=== PATIENT | male | born 1960 | race Two or more races ===

== ENCOUNTER 2018-02-21 10:16 | Inpatient (IN) | payer OTHER ==
[2018-02-21 10:33] VITALS: BMI 36.1
--- NOTE | 2018-02-21 12:11 | HP ---
CIWA Score - CIWA Score Nausea/Vomitin Muscle Tremors: 3 Anxiety: 3 Agitation: 3 Paroxysmal Sweats: 1-Minimal Palms Moist Orientation: 0-Oriented Tacttile Disturbances: 2-Mild Itch/Numbness/Burn Auditory Disturbances: 2-Mild Harshness/Frighten Visual Disturbances: 0-None Headache: 2-Mild CIWA-Ar Total Score: 19 Admission ROS BHS - HPI Chief Complaint: i need help to stop drinking alcohol,cocaine and marijuana Allergies/Adverse Reactions: Allergies Allergy/AdvReac Type Severity Reaction Status Date / Time No Known Allergies Allergy Verified 02/21/18 10:42 History of Present Illness: this 57 years old male with alcohol,cocaine and marijuana dependence seeking detox,withdrawal symptom,last treatment [facility] 01/29 syncope on 02/16/18 hypertension,type 2 dm, sleep apnea for 8 years on cpap at home nightly bipolar disorder and depression longest period of sobriety 10 years Exam Limitations: No Limitations - Ebola screening Have you traveled outside of the country in the last 21 days: No (N) Have you had contact with anyone from an Ebola affected area: No Have you been sick,other than usual withdrawal symptoms: No Do you have a fever: No - Review of Systems Constitutional: Loss of Appetite, Malaise, Night Sweats, Changes in sleep, Weakness EENT: reports: Tearing, Nose Congestion Respiratory: reports: No Symptoms reported, Other (astma) Cardiac: reports: No Symptoms Reported GI: reports: Diarrhea, Nausea, Vomiting, Abdominal cramping : reports: No Symptoms Reported Musculoskeletal: reports: Back Pain, Muscle Pain Integumentary: reports: Dryness Neuro: reports: Tremors Endocrine: reports: No Symptoms Reported Hematology: reports: No Symptoms Reported Psychiatric: reports: No Sypmtoms Reported, Judgement Intact, Mood/Affect Appropiate, Orientated x3, Depressed (bipolar with depression) Patient History - Patient Medical History Hx Asthma: Yes (ON PUMP albuterol and advair) Hx Chronic Obstructive Pulmonary Disease (COPD): No Hx Cancer: No Hx Cardiac Disorders: No Hx Congestive Heart Failure: No Hx Hypertension: Yes (ON MEDICATIONS) Hx Hypercholesterolemia: No Hx Pacemaker: No HX Cerebrovascular Accident: No Hx Seizures: No Hx Dementia: No Hx Diabetes: Yes (ON METFORMIN) Hx Gastrointestinal Disorders: No Hx Liver Disease: No Hx Genitourinary Disorders: No Hx Sexually Transmitted Disorders: No Hx Renal Disease (ESRD): No Hx Thyroid Disease: No Hx Human Immunodeficiency Virus (HIV): No (last 2011 negative) Hx Hepatitis C: No Hx Depression: Yes Hx Suicide Attempt: Yes (O/D ON PAIN MEDICATION last 2015) Hx Bipolar Disorder: No Hx Schizophrenia: No Other Medical History: no sucidal,no homicidal - Patient Surgical History Past Surgical History: No Hx Neurologic Surgery: No Hx Cataract Extraction: No Hx Cardiac Surgery: No Hx Lung Surgery: No Hx Breast Surgery: No Hx Breast Biopsy: No Hx Abdominal Surgery: No Hx Appendectomy: No Hx Cholecystectomy: No Hx Genitourinary Surgery: No Hx Section: No Hx Orthopedic Surgery: No Anesthesia Reaction: No - PPD History Previous Implant?: Yes Documented Results: Negative w/o proof Implanted On [facility] Admission?: No PPD to be Administered?: Yes - Smoking Cessation Smoking history: Current every day smoker Have you smoked in the past 12 months: Yes Aproximately how many cigarettes per day: 6 Hx Chewing Tobacco Use: No Initiated information on smoking cessation: Yes 'Breaking Loose' booklet given: 02/21/18 - Substance & Tx. History Hx Alcohol Use: Yes Hx Substance Use: Yes Substance Use Type: Alcohol, Cocaine, Marijuana - Substances Abused Alcohol Route: Oral Frequency: Daily Amount used: 6-7 40 [employer] Age of first use: 11 Date of Last Use: 02/20/18 Crack Route: Smoking Frequency: Daily Amount used: $300-$400 DAILY Age of first use: 32 Date of Last Use: 02/20/18 Marijuana/Hashish Route: Smoking Frequency: Daily Amount used: $300 Age of first use: 14 Date of Last Use: 02/20/18 Family Disease History - Family Disease History Family Disease History: CA: Mother (right breast,), Other: Father (alcohol, ), Mother Admission Physical Exam S - Vital Signs Vital Signs: Vital Signs - 24 hr 02/21/18 10:28 Temperature 98.8 F Pulse Rate 78 Respiratory 18 Rate Blood Pressure 160/94 - Physical General Appearance: Yes: Moderate Distress, Tremorous, Irritable, Sweating, Anxious HEENTM: Yes: Normal ENT Inspection, MAULIK, Pharynx Normal Respiratory: Yes: Lungs Clear, Normal Breath Sounds, No Respiratory Distress Neck: Yes: Within Normal Limits Breast: Yes: Within Normal Limits Cardiology: Yes: Within Normal Limits, Regular Rhythm, Regular Rate, S1, S2 Abdominal: Yes: Within Normal Limits, Normal Bowel Sounds, Non Tender, Flat, Soft Genitourinary: Yes: Within Normal Limits Back: Yes: Within Normal Limits Musculoskeletal: Yes: Within Normal Limits, full range of Motion, Back pain, Muscle Pain Extremities: Yes: Tremors Neurological: Yes: 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 intact, Fully Oriented, Alert, Motor Strength 5/5 Integumentary: Yes: Dry Lymphatic: Yes: Within Normal Limits - Diagnostic (1) Alcohol dependence with uncomplicated withdrawal Current Visit: Yes Status: Acute (2) Cocaine dependence Current Visit: Yes Status: Acute (3) Cannabis dependence Current Visit: Yes Status: Acute (4) Essential hypertension Current Visit: Yes Status: Acute (5) Asthma Current Visit: Yes Status: Acute (6) Sleep apnea Current Visit: Yes Status: Acute (7) Nicotine dependence Current Visit: Yes Status: Acute (8) Bipolar disorder Current Visit: Yes Status: Acute Cleared for Admission [facility] - Detox or Rehab [facility] Level of Care: Medically Managed Detox Regimen/Protocol: Librium [facility] Breath Alcohol Content Breath Alcohol Content: 0 Urine Drug Screen - Results Drug Screen Negative: No Urine Drug Screen Results: THC-Marijuana, FRIDA-Cocaine, BZO-Benzodiazepines, TCA- Tricyclic Antidepress
[2018-02-21] MEDS ORDERED: P-EPHED 60MG/TRIPROLIDI 2.5MG TABLET PO PRN (12:28)
[2018-02-21] MEDS ORDERED: LOPERAMIDE HCL 2 MG CAPSULE PO PRN (12:28)
[2018-02-21] MEDS ORDERED: MENTHOL/PHENOL 1 EACH UD MM PRN (12:28)
[2018-02-21] MEDS ORDERED: chlordiazePOXIDE HCL 25 MG CAPSULE PO PRN (12:28)
[2018-02-21] MEDS ORDERED: IBUPROFEN 400 MG TABLET (FP) PO PRN (12:28)
[2018-02-21] MEDS ORDERED: chlordiazePOXIDE HCL 25 MG CAPSULE PO ONE (12:28)
[2018-02-21] MEDS ORDERED: ACETAMINOPHEN 325 MG TABLET (FP) PO PRN (12:28)
[2018-02-21] MEDS ORDERED: MAGNESIUM CITRATE 300 ML BOTTLE PO PRN (12:28)
[2018-02-21] MEDS ORDERED: MAG HYDROX/AL HYDROX/SIMETH 30 ML UNIT-DOSE CUP PO PRN (12:28)
[2018-02-21] MEDS ORDERED: guaiFENesin/D-METHORPHAN HB 10 ML UNIT-DOSE CUPS PO PRN (12:28)
[2018-02-21] MEDS ORDERED: hydrOXYzine PAMOATE 50 MG CAPSULE (FP) PO PRN (12:28)
[2018-02-21] MEDS ORDERED: MAGNESIUM HYDROX 2400MG/30ML ORAL SUSPENSION 30 ML CUP PO PRN (12:28)
[2018-02-21] MEDS: NICOTINE 21 MG/24 HOURS TOPICAL PATCH TD SCH (14:01)
[2018-02-21] MEDS: chlordiazePOXIDE HCL 25 MG CAPSULE PO SCH ×2 (17:10→22:18)
[2018-02-21] MEDS: metFORMIN HCL 500 MG TABLET (FP) PO SCH (17:11)
[2018-02-21] MEDS ORDERED: MELATONIN 5 MG TABLETS PO PRN (22:00)
[2018-02-21] MEDS: THIAMINE HCL 100 MG TABLET (FP) PO SCH (22:18)
[2018-02-22] MEDS: chlordiazePOXIDE HCL 25 MG CAPSULE PO SCH ×4 (05:17→22:07)
[2018-02-22] MEDS: metFORMIN HCL 500 MG TABLET (FP) PO SCH ×2 (07:17→17:49)
--- NOTE | 2018-02-22 08:52 | EKG ---
Test Reason : Blood Pressure : / mmHG Vent. Rate : 085 BPM Atrial Rate : 085 BPM P-R Int : 160 ms QRS Dur : 110 ms QT Int : 388 ms P-R-T Axes : 041 060 -27 degrees QTc Int : 461 ms SINUS RHYTHM WITH MARKED SINUS ARRHYTHMIA AND PREMATURE ATRIAL COMPLEXES T WAVE ABNORMALITY, CONSIDER INFERIOR ISCHEMIA PROLONGED QT ABNORMAL ECG WHEN COMPARED WITH ECG OF 21-FEB-2018 12:56, NO SIGNIFICANT CHANGE S SEEN Confirmed by UYEN CORTEZ MD ([id number]) on 02/22/2018 8:52:33 AM Referred By: Confirmed By:UYEN CORTEZ MD
--- NOTE | 2018-02-22 09:00 | EKG ---
Test Reason : Blood Pressure : / mmHG Vent. Rate : 095 BPM Atrial Rate : 095 BPM P-R Int : 170 ms QRS Dur : 110 ms QT Int : 364 ms P-R-T Axes : 049 063 -40 degrees QTc Int : 457 ms SINUS RHYTHM WITH PREMATURE ATRIAL COMPLEXES T WAVE ABNORMALITY, CONSIDER INFERIOR ISCHEMIA ABNORMAL ECG NO PREVIOUS ECGS AVAILABLE Confirmed by UYEN CORTEZ MD ([id number]) on 02/22/2018 8:59:38 AM Referred By: Confirmed By:UYEN CORTEZ MD
[2018-02-22] MEDS: amLODIPine BESYLATE 10 MG TABLET (FP) PO SCH (10:17)
[2018-02-22] MEDS: HYDROCHLOROTHIAZIDE 25 MG TABLET (FP) PO SCH (10:17)
[2018-02-22] MEDS: ASPIRIN COATED 81 MG TABLET.EC PO SCH (10:17)
[2018-02-22] MEDS: PRENATAL VITAMINS W/ FOLIC ACID TABLET (FP) PO SCH (10:17)
[2018-02-22] MEDS: NICOTINE 21 MG/24 HOURS TOPICAL PATCH TD SCH (10:19)
[2018-02-22] MEDS: GLIMEPIRIDE 4 MG TABLET (FP) PO SCH (11:00)
[2018-02-22 11:18] LABS: HEMATOCRIT 40.9 % (35.4-49); HEMOGLOBIN 13.6 GM/dL (11.7-16.9); MCH 30.4 pg (25.7-33.7); MCHC 33.3 g/dl (32.0-35.9); MEAN CELL VOLUME 91.1 fl (80-96); MEAN PLT VOLUME 7.2 fl (7.5-11.1); PLATELET COUNT 247 K/MM3 (134-434); RBC 4.49 M/mm3 (4.00-5.60); RDW 13.2 % (11.9-15.9)
[2018-02-22 11:37] LABS: ALBUMIN 3.2 g/dl (3.4-5.0); ANION GAP 8 (8-16); BILIRUBIN,TOTAL 0.3 mg/dL (0.2-1.0); BLOOD UREA NITROGEN 9 mg/dL (7-18); CALCIUM 8.5 mg/dL (8.5-10.1); CHLORIDE 107 mmol/L (98-107); CO2 27 mmol/L (21-32); CREATININE 0.9 mg/dL (0.7-1.3); GLUCOSE,RANDOM 210 mg/dL (74-106); POTASSIUM 3.7 mmol/L (3.5-5.1); SGOT/AST 21 U/L (15-37); SGPT/ALT 43 U/L (12-78); SODIUM 142 mmol/L (136-145); TOT PROT 6.6 g/dl (6.4-8.2)
--- NOTE | 2018-02-22 11:37 | PN ---
S CIWA - CIWA Score Nausea/Vomitin-No Nausea/No Vomiting Muscle Tremors: 4-Moderate,w/Arms Extend Anxiety: 4-Mod. Anxious/Guarded Agitation: 4-Moderately Restless Paroxysmal Sweats: 1-Minimal Palms Moist Orientation: 0-Oriented Tacttile Disturbances: 0-None Auditory Disturbances: 0-None Visual Disturbances: 0-None Headache: 0-None Present CIWA-Ar Total Score: 13 BHS Progress Note (SOAP) Subjective: ANXIETY,SWEATS,TREMORS,FATIGUE. Objective: 02/22/18 11:36 Vital Signs 02/22/18 02/22/18 02/22/18 06:21 06:30 09:12 Temperature 97.2 F L 96.7 F L Pulse Rate 76 48 L Respiratory 18 18 18 Rate Blood Pressure 114/80 136/91 Laboratory Tests 02/21/18 02/21/18 02/22/18 11:29 16:12 05:16 WBC RBC Hgb Hct MCV MCH MCHC RDW Plt Count MPV POC Glucometer 177 293 247 02/22/18 07:00 WBC 7.0 RBC 4.49 Hgb 13.6 Hct 40.9 MCV 91.1 MCH 30.4 MCHC 33.3 RDW 13.2 Plt Count 247 MPV 7.2 L POC Glucometer OTHER LABS PENDING Assessment: 02/22/18 11:37 WITHDRAWAL SX Plan: CONTINUE DETOX
[2018-02-22 11:38] LABS: ALK PHOS 94 U/L (45-117)
--- NOTE | 2018-02-22 12:22 | CONSULT ---
[facility] Psychiatric Consult - Data Date of interview: 02/22/18 Admission source: [facility] Identifying data: First admission to [facility] for this 57 y/o AA male seeking detox treatment on for alcohol,cannabis and cocaine (crack) dependence.Patient is single,without children,homeless,unemployed and supported on SSI benefits. Substance Abuse History: Confirmed by the patient.Smoking history: Current every day smoker. Have you smoked in the past 12 months: Yes. Aproximately how many cigarettes per day: 6. Hx Chewing Tobacco Use: No. Initiated information on smoking cessation: Yes. 'Breaking Loose' booklet given: . - Substance & Tx. History. Hx Alcohol Use: Yes. Hx Substance Use: Yes. Substance Use Type: Alcohol, Cocaine, Marijuana. - Substances Abused. Alcohol. Route: Oral. Frequency: Daily. Amount used: 6-7 40 [employer]. Age of first use: 11. Date of Last Use: 02/20/18. Crack. Route: Smoking. Frequency: Daily. Amount used: $300-$400 DAILY. Age of first use: 32. Date of Last Use: 02/20/18. Marijuana/Hashish. Route: Smoking. Frequency: Daily. Amount used: $300. Age of first use: 14. Date of Last Use: 02/20/18 Medical History: Significant for sleep apnea (CPAP),diabetes mellitus,bronchial asthma and chronic lumbar pain. Psychiatric History: Patient admits to a prior history of psychiatric hospitalizations.Known to [facility].Diagnosed with MDD and Bipolar Disorder as per self-report.Patient indicates that he " used to " be on clozapine and zolpidem.Not taken " for a while." Mr Castaneda states that he does not have a psychiatric OPD care provider at this time.He endorses a history of one suicide attempt, in 2016, via overdose with medications. Physical/Sexual Abuse/Trauma History: Patient denies. Additional Comment: Urine Drug Screen Results: THC-Marijuana, FRIDA-Cocaine, BZO- Benzodiazepines, TCA-Tricyclic Antidepressant.Noted. Mental Status Exam - Mental Status Exam Alert and Oriented to: Time, Place, Person Cognitive Function: Good Patient Appearance: Well Groomed (short stature,obese) Mood: Nervous, Anxious Affect: Mood Congruent Patient Behavior: Fatigued, Appropriate, Cooperative Speech Pattern: Clear, Appropriate Voice Loudness: Normal Thought Process: Intact, Goal Oriented Thought Disorder: Not Present Hallucinations: Denies Suicidal Ideation: Denies Homicidal Ideation: Denies Insight/Judgement: Fair Sleep: Poorly, Difficulty falling asleep Appetite: Good Muscle strength/Tone: Normal Gait/Station: Normal Psychiatric Findings - Problem List ([place] 1, 2,3) (1) Alcohol dependence with uncomplicated withdrawal Current Visit: Yes Status: Acute (2) Cannabis dependence Current Visit: Yes Status: Acute (3) Cocaine dependence Current Visit: Yes Status: Acute Qualifiers: Substance use status: uncomplicated Qualified Code(s): F14.20 - Cocaine dependence, uncomplicated (4) Nicotine dependence Current Visit: Yes Status: Acute Qualifiers: Nicotine product type: cigarettes Substance use status: in withdrawal Qualified Code(s): F17.213 - Nicotine dependence, cigarettes, with withdrawal (5) Bipolar disorder Current Visit: Yes Status: Chronic Comment: As per self-report. (6) Substance induced mood disorder Current Visit: Yes Status: Suspected (7) Insomnia Current Visit: Yes Status: Acute Qualifiers: Insomnia type: unspecified Qualified Code(s): G47.00 - Insomnia, unspecified - Initial Treatment Plan Initial Treatment Plan: Psychoeducation.Sleep hygiene.Detoxification in progress.Clozaril is not re-started (extended period of non-adherence).Insomnia is addressed with melatonin 5 mg po hs.Patient is made aware.Side effects/ benefits discussed.Mr Castaneda agrees with this careplan.Observation.[facility] is contacted at [phone] (with patient's verbal authorization ) : last refills were issued in August 2015 for depakote,risperidone and citalopram.Medication reconciliation sheet : no evidence of zolpidem or clozapine.
[2018-02-22 12:34] LABS: SICKLE CELL SCREEN NEGATIVE (NEGATIVE)
[2018-02-22] MEDS: THIAMINE HCL 100 MG TABLET (FP) PO SCH (22:07)
[2018-02-23] MEDS: chlordiazePOXIDE HCL 25 MG CAPSULE PO SCH ×2 (05:49→10:09)
[2018-02-23] MEDS: metFORMIN HCL 500 MG TABLET (FP) PO SCH ×2 (06:21→17:30)
[2018-02-23] MEDS: GLIMEPIRIDE 4 MG TABLET (FP) PO SCH (06:21)
[2018-02-23] MEDS: NICOTINE 21 MG/24 HOURS TOPICAL PATCH TD SCH (10:08)
[2018-02-23] MEDS: amLODIPine BESYLATE 10 MG TABLET (FP) PO SCH (10:08)
[2018-02-23] MEDS: PRENATAL VITAMINS W/ FOLIC ACID TABLET (FP) PO SCH (10:08)
[2018-02-23] MEDS: HYDROCHLOROTHIAZIDE 25 MG TABLET (FP) PO SCH (10:08)
[2018-02-23] MEDS: ASPIRIN COATED 81 MG TABLET.EC PO SCH (10:08)
[2018-02-23] MEDS: NICOTINE POLACRILEX 2 MG GUM BC PRN (10:08)
--- NOTE | 2018-02-23 11:31 | PN ---
[facility] CIWA - CIWA Score Nausea/Vomitin-No Nausea/No Vomiting Muscle Tremors: 4-Moderate,w/Arms Extend Anxiety: 4-Mod. Anxious/Guarded Agitation: 4-Moderately Restless Paroxysmal Sweats: 1-Minimal Palms Moist Orientation: 0-Oriented Tacttile Disturbances: 0-None Auditory Disturbances: 0-None Visual Disturbances: 0-None Headache: 0-None Present CIWA-Ar Total Score: 13 S Progress Note (SOAP) Subjective: C/O TREMORS, ANXIETY, SWEATS. ALERT O X 3. PT USES C-PAP MACHINE WHEN SLEEPING- SELF CARE. Objective: 02/23/18 11:31 Vital Signs 02/23/18 02/23/18 06:16 09:16 Temperature 97.5 F L 97.1 F L Pulse Rate 73 60 Respiratory 20 18 Rate Blood Pressure 132/87 132/75 Laboratory Tests 02/21/18 02/21/18 02/22/18 11:29 16:12 05:16 WBC RBC Hgb Hct MCV MCH MCHC RDW Plt Count MPV Sickle Cell Screen Sodium Potassium Chloride Carbon Dioxide Anion Gap BUN Creatinine Creat Clearance w eGFR POC Glucometer 177 293 247 Random Glucose Calcium Total Bilirubin AST ALT Alkaline Phosphatase Total Protein Albumin RPR Titer HIV 1&2 Antibody Screen HIV P24 Antigen 02/22/18 02/22/18 02/22/18 07:00 07:00 07:00 WBC 7.0 RBC 4.49 Hgb 13.6 Hct 40.9 MCV 91.1 MCH 30.4 MCHC 33.3 RDW 13.2 Plt Count 247 MPV 7.2 L Sickle Cell Screen Negative Sodium 142 Potassium 3.7 Chloride 107 Carbon Dioxide 27 Anion Gap 8 BUN 9 Creatinine 0.9 Creat Clearance w eGFR > 60 POC Glucometer Random Glucose 210 H Calcium 8.5 Total Bilirubin 0.3 AST 21 ALT 43 Alkaline Phosphatase 94 Total Protein 6.6 Albumin 3.2 L RPR Titer HIV 1&2 Antibody Screen Negative HIV P24 Antigen Negative 02/22/18 02/22/18 02/23/18 07:00 16:21 05:48 WBC RBC Hgb Hct MCV MCH MCHC RDW Plt Count MPV Sickle Cell Screen Sodium Potassium Chloride Carbon Dioxide Anion Gap BUN Creatinine Creat Clearance w eGFR POC Glucometer 224 267 Random Glucose Calcium Total Bilirubin AST ALT Alkaline Phosphatase Total Protein Albumin RPR Titer Nonreactive HIV 1&2 Antibody Screen HIV P24 Antigen Assessment: 02/23/18 11:31 WITHDRAWAL SX Plan: CONTINUE DETOX
[2018-02-23] MEDS: chlordiazePOXIDE 5 MG CAPSULE PO SCH ×2 (17:30→22:05)
--- NOTE | 2018-02-23 17:52 | PN ---
[facility] Progress Note Note: Psychiatry Attending's note : Approached by patient earlier during daytime. Complaint offered : insomnia not responding to melatonin. Mr Castaneda insists on receiving ambien at bedtime. Patient is a known case of obstructive sleep apnea (on CPAP). Ambien represents a significant risk for respiratory depression. Will avoid this medication.Switch to benadryl 50 mg po hs prn. Discussed with patient.Mr Castaneda is agreeable with this careplan. Will follow.
[2018-02-23] MEDS ORDERED: diphenhydrAMINE HCL 50 MG CAPSULE PO PRN (22:00)
[2018-02-23] MEDS ORDERED: ZOLPIDEM TARTRATE 5 MG TABLET PO PRN (22:00)
[2018-02-23] MEDS ORDERED: hydrOXYzine PAMOATE 50 MG CAPSULE (FP) PO PRN (22:00)
[2018-02-23] MEDS: THIAMINE HCL 100 MG TABLET (FP) PO SCH (22:05)
[2018-02-24] MEDS: chlordiazePOXIDE 5 MG CAPSULE PO SCH (05:53)
[2018-02-24] MEDS: GLIMEPIRIDE 4 MG TABLET (FP) PO SCH (06:09)
[2018-02-24] MEDS: metFORMIN HCL 500 MG TABLET (FP) PO SCH (06:09)
[2018-02-24 09:26] VITALS: BP 130/82; PULSE 71; TEMP 97
[2018-02-24 09:58] LABS: URINE APPEARANCE CLEAR; URINE BILIRUBIN NEGATIVE (<2.0 mg/dL); URINE COLOR YELLOW; URINE GLUCOSE (UA) 3+ (NEGATIVE); URINE KETONE NEGATIVE (NEGATIVE); URINE LEUK ESTERASE NEGATIVE (NEGATIVE); URINE NITRITE NEGATIVE (NEGATIVE); URINE PROTEIN NEGATIVE (NEGATIVE); URINE UROBILINOGEN 4.0 E.U/dl mg/dL (0.2-1.0)
[2018-02-24 10:34] LABS: EPI CELLS RARE /HPF (FEW)
[2018-02-24] MEDS: ASPIRIN COATED 81 MG TABLET.EC PO SCH (10:34)
[2018-02-24] MEDS: HYDROCHLOROTHIAZIDE 25 MG TABLET (FP) PO SCH (10:34)
[2018-02-24] MEDS: amLODIPine BESYLATE 10 MG TABLET (FP) PO SCH (10:34)
[2018-02-24] MEDS: PRENATAL VITAMINS W/ FOLIC ACID TABLET (FP) PO SCH (10:35)
[2018-02-24] MEDS: NICOTINE 21 MG/24 HOURS TOPICAL PATCH TD SCH (10:35)
[2018-02-24] MEDS: NICOTINE POLACRILEX 2 MG GUM BC PRN (10:36)
[2018-02-24] MEDS ORDERED: chlordiazePOXIDE HCL 10 MG CAPSULE PO SCH ×2 (11:00→17:00)
--- NOTE | 2018-02-24 13:15 | PN ---
[facility] Progress Note (SOAP) Subjective: DETOX COMPLETED. ALERT O X 3. NAD. PT EAGER TO GO INTO REHAB TODAY. [facility] [address] [place] [address] REHAB TODAY. Objective: 02/24/18 13:13 Vital Signs 02/24/18 02/24/18 06:42 09:25 Temperature 97.6 F 97.0 F L Pulse Rate 74 71 Respiratory 20 18 Rate Blood Pressure 115/75 130/82 Laboratory Tests 02/21/18 02/21/18 02/22/18 11:29 16:12 05:16 WBC RBC Hgb Hct MCV MCH MCHC RDW Plt Count MPV Sickle Cell Screen Sodium Potassium Chloride Carbon Dioxide Anion Gap BUN Creatinine Creat Clearance w eGFR POC Glucometer 177 293 247 Random Glucose Calcium Total Bilirubin AST ALT Alkaline Phosphatase Total Protein Albumin Urine Color Urine Appearance Urine pH Ur Specific [place] Urine Protein Urine Glucose (UA) Urine Ketones Urine Blood Urine Nitrite Urine Bilirubin Urine Urobilinogen Ur Leukocyte Esterase Urine WBC (Auto) Urine RBC (Auto) Ur Epithelial Cells RPR Titer HIV 1&2 Antibody Screen HIV P24 Antigen 02/22/18 02/22/18 02/22/18 07:00 07:00 07:00 WBC 7.0 RBC 4.49 Hgb 13.6 Hct 40.9 MCV 91.1 MCH 30.4 MCHC 33.3 RDW 13.2 Plt Count 247 MPV 7.2 L Sickle Cell Screen Negative Sodium 142 Potassium 3.7 Chloride 107 Carbon Dioxide 27 Anion Gap 8 BUN 9 Creatinine 0.9 Creat Clearance w eGFR > 60 POC Glucometer Random Glucose 210 H Calcium 8.5 Total Bilirubin 0.3 AST 21 ALT 43 Alkaline Phosphatase 94 Total Protein 6.6 Albumin 3.2 L Urine Color Urine Appearance Urine pH Ur Specific [place] Urine Protein Urine Glucose (UA) Urine Ketones Urine Blood Urine Nitrite Urine Bilirubin Urine Urobilinogen Ur Leukocyte Esterase Urine WBC (Auto) Urine RBC (Auto) Ur Epithelial Cells RPR Titer HIV 1&2 Antibody Screen Negative HIV P24 Antigen Negative 02/22/18 02/22/18 02/23/18 07:00 16:21 05:48 WBC RBC Hgb Hct MCV MCH MCHC RDW Plt Count MPV Sickle Cell Screen Sodium Potassium Chloride Carbon Dioxide Anion Gap BUN Creatinine Creat Clearance w eGFR POC Glucometer 224 267 Random Glucose Calcium Total Bilirubin AST ALT Alkaline Phosphatase Total Protein Albumin Urine Color Urine Appearance Urine pH Ur Specific [place] Urine Protein Urine Glucose (UA) Urine Ketones Urine Blood Urine Nitrite Urine Bilirubin Urine Urobilinogen Ur Leukocyte Esterase Urine WBC (Auto) Urine RBC (Auto) Ur Epithelial Cells RPR Titer Nonreactive HIV 1&2 Antibody Screen HIV P24 Antigen 02/24/18 02/24/18 05:56 06:40 WBC RBC Hgb Hct MCV MCH MCHC RDW Plt Count MPV Sickle Cell Screen Sodium Potassium Chloride Carbon Dioxide Anion Gap BUN Creatinine Creat Clearance w eGFR POC Glucometer 261 Random Glucose Calcium Total Bilirubin AST ALT Alkaline Phosphatase Total Protein Albumin Urine Color Yellow Urine Appearance Clear Urine pH 6.0 Ur Specific [place] 1.028 Urine Protein Negative Urine Glucose (UA) 3+ H Urine Ketones Negative Urine Blood 3+ H Urine Nitrite Negative Urine Bilirubin Negative Urine Urobilinogen 4.0 e.u/dl Ur Leukocyte Esterase Negative Urine WBC (Auto) 8 Urine RBC (Auto) 307 Ur Epithelial Cells Rare RPR Titer HIV 1&2 Antibody Screen HIV P24 Antigen Assessment: 02/24/18 13:14 MEDICALLY STABLE Plan: D/C PT TODAY TO REHAB REPEAT UA;UC IN REHAB.
--- NOTE | 2018-02-24 13:18 | DS ---
[facility] Detox Discharge Summary Admission Date: 02/21/18 Discharge Date: 02/24/18 - History Present History: Alcohol Dependence, Cannabis Dependence, Cocaine Dependence Additional Comments: DETOX COMPLETED. ALERT O X 3. NAD. Pertinent Past History: PLEASE SEE DX BELOW - Physical Exam Results Vital Signs: Vital Signs Temperature 97.0 F L 02/24/18 09:25 Pulse Rate 71 02/24/18 09:25 Respiratory Rate 18 02/24/18 09:25 Blood Pressure 130/82 02/24/18 09:25 O2 Sat by Pulse Oximetry (%) Pertinent Admission Physical Exam Findings: WITHDRAWAL SX Laboratory Tests 02/21/18 02/21/18 02/22/18 11:29 16:12 05:16 WBC RBC Hgb Hct MCV MCH MCHC RDW Plt Count MPV Sickle Cell Screen Sodium Potassium Chloride Carbon Dioxide Anion Gap BUN Creatinine Creat Clearance w eGFR POC Glucometer 177 293 247 Random Glucose Calcium Total Bilirubin AST ALT Alkaline Phosphatase Total Protein Albumin Urine Color Urine Appearance Urine pH Ur Specific [place] Urine Protein Urine Glucose (UA) Urine Ketones Urine Blood Urine Nitrite Urine Bilirubin Urine Urobilinogen Ur Leukocyte Esterase Urine WBC (Auto) Urine RBC (Auto) Ur Epithelial Cells RPR Titer HIV 1&2 Antibody Screen HIV P24 Antigen 02/22/18 02/22/18 02/22/18 07:00 07:00 07:00 WBC 7.0 RBC 4.49 Hgb 13.6 Hct 40.9 MCV 91.1 MCH 30.4 MCHC 33.3 RDW 13.2 Plt Count 247 MPV 7.2 L Sickle Cell Screen Negative Sodium 142 Potassium 3.7 Chloride 107 Carbon Dioxide 27 Anion Gap 8 BUN 9 Creatinine 0.9 Creat Clearance w eGFR > 60 POC Glucometer Random Glucose 210 H Calcium 8.5 Total Bilirubin 0.3 AST 21 ALT 43 Alkaline Phosphatase 94 Total Protein 6.6 Albumin 3.2 L Urine Color Urine Appearance Urine pH Ur Specific [place] Urine Protein Urine Glucose (UA) Urine Ketones Urine Blood Urine Nitrite Urine Bilirubin Urine Urobilinogen Ur Leukocyte Esterase Urine WBC (Auto) Urine RBC (Auto) Ur Epithelial Cells RPR Titer HIV 1&2 Antibody Screen Negative HIV P24 Antigen Negative 02/22/18 02/22/18 02/23/18 07:00 16:21 05:48 WBC RBC Hgb Hct MCV MCH MCHC RDW Plt Count MPV Sickle Cell Screen Sodium Potassium Chloride Carbon Dioxide Anion Gap BUN Creatinine Creat Clearance w eGFR POC Glucometer 224 267 Random Glucose Calcium Total Bilirubin AST ALT Alkaline Phosphatase Total Protein Albumin Urine Color Urine Appearance Urine pH Ur Specific [place] Urine Protein Urine Glucose (UA) Urine Ketones Urine Blood Urine Nitrite Urine Bilirubin Urine Urobilinogen Ur Leukocyte Esterase Urine WBC (Auto) Urine RBC (Auto) Ur Epithelial Cells RPR Titer Nonreactive HIV 1&2 Antibody Screen HIV P24 Antigen 02/24/18 02/24/18 05:56 06:40 WBC RBC Hgb Hct MCV MCH MCHC RDW Plt Count MPV Sickle Cell Screen Sodium Potassium Chloride Carbon Dioxide Anion Gap BUN Creatinine Creat Clearance w eGFR POC Glucometer 261 Random Glucose Calcium Total Bilirubin AST ALT Alkaline Phosphatase Total Protein Albumin Urine Color Yellow Urine Appearance Clear Urine pH 6.0 Ur Specific [place] 1.028 Urine Protein Negative Urine Glucose (UA) 3+ H Urine Ketones Negative Urine Blood 3+ H Urine Nitrite Negative Urine Bilirubin Negative Urine Urobilinogen 4.0 e.u/dl Ur Leukocyte Esterase Negative Urine WBC (Auto) 8 Urine RBC (Auto) 307 Ur Epithelial Cells Rare RPR Titer HIV 1&2 Antibody Screen HIV P24 Antigen TO REPEAT UA;UC WHILE IN REHAB. - Treatment Hospital Course: Detox Protocol Followed, Detoxed Safely, Responded well, Discharged Condition Good, Rehab Referral Accepted Patient has Accepted a Rehab Referral to: [facility] [address] [place] [address] - Medication Discharge Medications: Ambulatory Orders Advair 250-50 Diskus 02/21/18 Albuterol Sulfate [Proair Hfa] 8.5 gm IH Q6H PRN 02/21/18 Amitriptyline HCl 25 mg PO HS 02/21/18 Amlodipine Besylate 10 mg PO DAILY 02/21/18 Aspirin [Aspirin EC] 81 mg PO DAILY 02/21/18 Gabapentin 600 mg PO TID 02/21/18 Glimepiride 4 mg PO DAILY 02/21/18 Hydrochlorothiazide 25 mg PO DAILY 02/21/18 Ibuprofen 800 mg PO TID 02/21/18 Lamotrigine [Lamictal -] 25 mg PO BID 02/21/18 Metformin HCl [Glucophage] 1,000 mg PO BID 02/21/18 Tizanidine HCl 4 mg PO TID 02/21/18 - Diagnosis (1) Alcohol dependence with uncomplicated withdrawal Current Visit: Yes Status: Acute (2) Asthma Current Visit: Yes Status: Chronic Qualifiers: Asthma severity: mild Asthma persistence: unspecified Asthma complication type: uncomplicated Qualified Code(s): J45.909 - Unspecified asthma, uncomplicated (3) Cocaine dependence Current Visit: Yes Status: Acute Qualifiers: Substance use status: uncomplicated Qualified Code(s): F14.20 - Cocaine dependence, uncomplicated (4) Essential hypertension Current Visit: Yes Status: Acute (5) Nicotine dependence Current Visit: Yes Status: Acute Qualifiers: Nicotine product type: cigarettes Substance use status: in withdrawal Qualified Code(s): F17.213 - Nicotine dependence, cigarettes, with withdrawal (6) Sleep apnea Current Visit: Yes Status: Chronic Qualifiers: Sleep apnea type: unspecified type Qualified Code(s): G47.30 - Sleep apnea , unspecified (7) Cannabis dependence Current Visit: Yes Status: Acute - AMA Did Patient Leave Against Medical Advice: No
--- NOTE | 2018-02-27 17:49 | EKG ---
Test Reason : Blood Pressure : / mmHG Vent. Rate : 080 BPM Atrial Rate : 080 BPM P-R Int : 160 ms QRS Dur : 096 ms QT Int : 360 ms P-R-T Axes : 024 065 001 degrees QTc Int : 415 ms SINUS RHYTHM WITH PREMATURE ATRIAL COMPLEXES NONSPECIFIC T WAVE ABNORMALITY ABNORMAL ECG WHEN COMPARED WITH ECG OF 21-FEB-2018 12:56, PREMATURE ATRIAL COMPLEXES ARE NOW PRESENT Confirmed by MELISSA TYLER, RADHA ([id number]) on 02/27/2018 5:49:23 PM Referred By: Confirmed By:RADHA TORRES MD
== END 2018-02-24 14:45 | disposition other institution (70) | DRG 774 ==
LOC: YASAS 10:16 → EDBD 10:16 → Y3N 12:47
PROVIDERS: ADMIT Surgery; ATTEND Surgery
PROC: HZ2ZZZZ Detoxification Services for Substance Abuse Treatment (ICD-10-PCS; principal; 2018-02-21)
DX: F10.230 Alcohol dependence with withdrawal, uncomplicated (principal); F14.20 Cocaine dependence, uncomplicated; F12.20 Cannabis dependence, uncomplicated; F17.213 Nicotine dependence, cigarettes, with withdrawal; F19.24 Other psychoactive substance dependence with psychoactive substance-induced mood disorder; F31.9 Bipolar disorder, unspecified; I10 Essential (primary) hypertension; E11.9 Type 2 diabetes mellitus without complications; J45.909 Unspecified asthma, uncomplicated; G47.00 Insomnia, unspecified; G47.33 Obstructive sleep apnea (adult) (pediatric); Z99.89 Dependence on other enabling machines and devices; Z79.84 Long term (current) use of oral hypoglycemic drugs; Z91.5 Personal history of self-harm
CPT/HCPCS: 36415; 80053; 81003; 81015; 82962; 85027; 85660; 86593; 87389; 93005; 93010

== ENCOUNTER 2018-03-02 13:48 | Emergency (ER) | payer OTHER ==
[2018-03-02 13:55] VITALS: BP 105/56; PULSE 88; TEMP 98.9; BMI 36.8
[2018-03-02] MEDS ORDERED: FAMOTIDINE 20 MG/50 ML IVPB 20 MG/50 ML MG IVPB ONE ×2 (14:28→14:49)
[2018-03-02] MEDS ORDERED: MAG HYDROX/AL HYDROX/SIMETH 30 ML UNIT-DOSE CUP PO ONE (14:28)
[2018-03-02] MEDS ORDERED: SODIUM CHLORIDE 0.9% 500 ML INFUS.BAG IV ONE (14:30)
[2018-03-02] MEDS ORDERED: MAG HYDROX/AL HYDROX/SIMETH 30 ML UNIT-DOSE CUP ONE (14:32)
--- NOTE | 2018-03-02 14:39 | PDOC ---
History of Present Illness - General Chief Complaint: Nausea/Vomiting Stated Complaint: ABD PAIN Time Seen by Provider: 03/02/18 14:02 History Source: Patient Exam Limitations: No Limitations - History of Present Illness Initial Comments: This is a 57 YOM with h/o crack cocain use, marijuana use, EtOH use, asthma, bipolar disorder, DAVID, and HTN who p/w 4-5 days of brown watery diarrhea, abdominal discomfort, nausea, NBNB vomiting x2 yesterday, and gurgling/burning sensation in his throat with strange taste. He has had similar symptoms before when he was diagnosed with food poisoning (resolved spontaneously). The patient denies any fever, chills, constipation, black/bloody stool, white stool, sharp abdominal or back pain, chest pain, SOB, numbness, tingling, fatigue/ generalized weakness, rash, loss of consciousness, or other symptoms. He has been trying anti-diarrheals like Immodium without relief of his symptoms. He denies ever having problems with acid reflux. Past History - Past Medical History Allergies/Adverse Reactions: Allergies Allergy/AdvReac Type Severity Reaction Status Date / Time trazodone AdvReac Intermediate Priapism Verified 03/02/18 13:53 Home Medications: Ambulatory Orders Albuterol Sulfate [Proair Hfa] 8.5 gm IH Q6H PRN 02/21/18 Amitriptyline HCl 25 mg PO HS 02/21/18 Amlodipine Besylate 10 mg PO DAILY 02/21/18 Aspirin [Aspirin EC] 81 mg PO DAILY 02/21/18 Gabapentin 600 mg PO TID 02/21/18 Glimepiride 4 mg PO DAILY 02/21/18 Hydrochlorothiazide 25 mg PO DAILY 02/21/18 Ibuprofen 800 mg PO TID 02/21/18 Lamotrigine [Lamictal -] 25 mg PO BID 02/21/18 Metformin HCl [Glucophage] 1,000 mg PO BID 02/21/18 Tizanidine HCl 4 mg PO TID 02/21/18 Asthma: Yes Cancer: No Cardiac Disorders: No CVA: No COPD: No CHF: No Dementia: No Diabetes: Yes GI Disorders: No Disorders: No HTN: Yes Hypercholesterolemia: No Kidney Stones: No Liver Disease: No Seizures: No Thyroid Disease: No - Surgical History Abdominal Surgery: No Appendectomy: No Cardiac Surgery: No Cholecystectomy: No Lung Surgery: No Neurologic Surgery: No Orthopedic Surgery: No - Reproductive History Testicular Surgery: No - Suicide/Smoking/Psychosocial Hx Smoking History: Current every day smoker Have you smoked in the past 12 months: Yes Number of Cigarettes Smoked Daily: 7 Information on smoking cessation initiated: No 'Breaking Loose' booklet given: 02/21/18 Hx Alcohol Use: Yes Drug/Substance Use Hx: Yes (marajuana, crack/cocaine) Substance Use Type: Alcohol, Cocaine, Marijuana Hx Substance Use Treatment: Yes (completed [employer] [facility] 12 yo,longest abstinence 9 years ) Abd/GI Specific PMHX - Complaint Specific PMHX Hepatitis: No Pancreatitis: No Review of Systems - Review of Systems Constitutional: No: Chills, Fever, Unexplained wgt Loss HEENTM: No: Nose Congestion, Throat Pain Respiratory: No: Cough, Shortness of Breath Cardiac (ROS): No: Chest Pain, Palpitations ABD/GI: Yes: Diarrhea, Nausea, Vomiting, Other (abdominal discomfort). No: Constipated : No: Burning, Dysuria Musculoskeletal: No: Back Pain, Neck Pain Integumentary: No: Bruising, Rash Neurological: No: Headache, Numbness, Tingling, Weakness, Dizziness Endocrine: No: Unexplained Weight Gain, Unexplained Weight Loss *Physical Exam - Vital Signs Last Vital Signs Temp Pulse Resp BP Pulse Ox 98.9 F 88 18 105/56 96 03/02/18 13:53 03/02/18 13:53 03/02/18 13:53 03/02/18 13:53 03/02/18 13:53 - Physical Exam General Appearance: Yes: Nourished, Appropriately Dressed, Other (nontoxic and well appearing, awake, alert, conversive, frustrated, answering questions appropriately, sitting in wheelchair in no distress). No: Apparent Distress HEENT: positive: EOMI, MAULIK, Normal Voice, Hearing Grossly Normal, Other ( mucous membranes are not moist). negative: Scleral Icterus (R), Scleral Icterus (L), Nasal Congestion Neck: positive: Trachea midline, Supple. negative: Tender, Rigid Respiratory/Chest: positive: Lungs Clear, Normal Breath Sounds. negative: Respiratory Distress, Crackles, Rhonchi, Stridor, Wheezing Cardiovascular: positive: Regular Rhythm, Regular Rate, S1, S2. negative: Edema , JVD, Murmur Gastrointestinal/Abdominal: positive: Normal Bowel Sounds, Tender (minimal epigastric), Flat, Soft. negative: Organomegaly, Pulsatile Mass, Guarding Musculoskeletal: positive: Normal Inspection. negative: Decreased Range of Motion, Vertebral Tenderness Extremity: positive: Normal Capillary Refill, Normal Inspection, Normal Range of Motion. negative: Tender, Cyanosis Integumentary: positive: Normal Color, Dry, Warm. 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 Initial Vital Signs Temp Pulse Resp BP Pulse Ox 98.9 F 88 18 105/56 96 03/02/18 13:53 03/02/18 13:53 03/02/18 13:53 03/02/18 13:53 03/02/18 13:53 Exam: minimal epigastric ttp, otherwise normal exam, normal heart/lung exam DDX IBNLT: GERD, gastritis, PUD, gastroenteritis, colitis, diverticulitis, pancreatitis, abdominal migraine, cannabis hyperemesis, unlikely to be SBO, cholecystitis, choledocholithiasis, cholangitis, appendicitis, AAA/AD, ACS, renal stone, mesenteric/bowel ischemia, bowel perforation, etc. W/U ordered: CBCD CMP Lipase TX ordered: Pepcid Maalox IVF Laboratory Tests 03/02/18 03/02/18 14:35 14:35 WBC 7.4 RBC 4.79 Hgb 14.2 Hct 43.1 MCV 89.9 MCH 29.7 MCHC 33.0 RDW 13.4 Plt Count 235 MPV 7.1 L Absolute Neuts (auto) 3.1 Neutrophils % 41.8 L Lymphocytes % 46.5 H Monocytes % 8.4 Eosinophils % 2.9 Basophils % 0.4 Nucleated RBC % 0 Sodium 139 Potassium 3.6 Chloride 101 Carbon Dioxide 29 Anion Gap 9 BUN 19 H D Creatinine 0.9 Creat Clearance w eGFR > 60 Random Glucose 131 H D Calcium 9.0 Total Bilirubin 0.4 D AST 38 H D ALT 74 D Alkaline Phosphatase 82 Total Protein 7.7 Albumin 3.5 Lipase 138 Repeat VS: Reassessment: Patient feels well, wants to go back to [facility]. The Pt has gotten significant relief of symptoms with ED medications. Workup is not concerning for emergency-level pathology at this time. They are appropriate for discharge with close outpatient follow up. They are comfortable with this plan and will follow up with their PCP in 1-3 days. Referral information is also given for GI provider in case sxs do not resolve. They will take Motrin and/or Tylenol for pain; Immodium for diarrhea according to OTC med label. He will take omeprazole OTC 20 mg daily for two weeks. Specific return precautions are discussed and they will come back to the ER if necessary. *DC/Admit/Observation/Transfer Diagnosis at time of Disposition: Diarrhea Qualifiers: Diarrhea type: unspecified type Qualified Code(s): R19.7 - Diarrhea, unspecified Abdominal pain Qualifiers: Abdominal location: epigastric Qualified Code(s): R10.13 - Epigastric pain Nausea & vomiting Qualifiers: Vomiting type: unspecified Vomiting Intractability: non-intractable Qualified Code(s): R11.2 - Nausea with vomiting, unspecified - Discharge Dispostion Disposition: HOME Condition at time of disposition: Stable Decision to Admit order: No - Referrals Referrals: [facility] [place] [Provider Group] - Patient Instructions Additional Instructions: You were seen in the ER for diarrhea, nasuea, vomiting, and upper abdominal discomfort. We did lab work on your blood and found no abnormalities that could explain the symptoms. We took an electrocardiogram which showed no concerning findings on your heart activity. We did a chest x-ray which was also normal. We did an abdominal ultrasound which was also normal. After our assessment, we do not believe you are having a medical emergency at this time, and we believe you are safe to go home. Please take [id number] medications for the pain, and take an [id number] antacid like omeprazole 20 mg once a day for two weeks to see if this helps your symptoms as well. Please also follow up with your regular doctor in 1-3 days. We are giving you referral information for a primary care clinic in case you need a new doctor. Call their clinic [facility], tell them you were seen in the ER, and tell them you need an appointment. Please come back to the ER at any time, 24 hours a day, for any new or worsening symptoms, like worsened abdominal pain, fever, inability to have a bowel movement or pass gas, chest pain, palpitations, inability to keep down fluids, or other symptoms. If you are having severe or life threatening symptoms, or symptoms that make it unsafe to drive or have someone drive you, please call 911. - Post Discharge Activity
[2018-03-02 14:52] LABS: BASO % 0.4 % (0-2.0); EOS % 2.9 % (0-4.5); HEMATOCRIT 43.1 % (35.4-49); HEMOGLOBIN 14.2 GM/dL (11.7-16.9); LYMPH % 46.5 % (8-40); MCH 29.7 pg (25.7-33.7); MEAN CELL VOLUME 89.9 fl (80-96); MEAN PLT VOLUME 7.1 fl (7.5-11.1); MONO % 8.4 % (3.8-10.2); NEUT % 41.8 % (42.8-82.8); PLATELET COUNT 235 K/MM3 (134-434); RBC 4.79 M/mm3 (4.00-5.60); RDW 13.4 % (11.9-15.9); WHITE BLOOD COUNT 7.4 K/mm3 (4.0-10.0)
--- NOTE | 2018-03-02 15:03 | PDOC ---
Attending Attestation - Resident Resident Name: Niurka Jones - ED Attending Attestation I have performed the following: I have examined & evaluated the patient, The case was reviewed & discussed with the resident, I agree w/resident's findings & plan, Exceptions are as noted - HPI HPI: 03/02/18 15:00 "The patient is a 57 year old male, with a significant PMH of hypertension, EtOH , marijuana and crack cocaine abuse, who presents to the emergency department via EMS from [facility] with 5 days of diarrhea (non bloody). The patient states that last Thursday he was admitted to [facility] for EtOH/ cocaine abuse and transitioned to [facility] on Thursday. The patient states that since Thursday he has had persistent diarrhea (non bloody) and endorses 2 episodes of nausea with (non bloody, non bilious) emesis. The patient states since yesterday he has also had a decreased appetite but reports he has been able to tolerate foods/ liquids. The patient states he has had similar symptoms in the past when he was diagnosed with food poisoning. The patient denies any recent antibiotics use, hiking or camping activities. No sick contacts. The patient denies chest pain, shortness of breath, headache and dizziness. Denies fever, chills, hematochezia, melena and constipation. Denies dysuria, frequency, urgency and hematuria. Allergies: trazodone " - Physicial Exam PE: 03/02/18 15:02 "GENERAL: Awake, alert, and fully oriented, in no acute distress. HEAD: No signs of trauma EYES: PERRLA, EOMI, sclera anicteric, conjunctiva clear ENT: Auricles normal inspection, hearing grossly normal, nares patent, oropharynx clear without exudates. Moist mucosa NECK: Nontender, no stepoffs, Normal ROM, supple, no lymphadenopathy, JVD, or masses LUNGS: Breath sounds equal, clear to auscultation bilaterally. No wheezes, and no crackles HEART: Regular rate and rhythm, normal S1 and S2, no murmurs, rubs or gallops ABDOMEN: +mild epigastric TTP, normoactive bowel sounds. No guarding, no rebound. No masses EXTREMITIES: Normal range of motion, no edema. No clubbing or cyanosis. No cords, erythema, or tenderness NEUROLOGICAL: Cranial nerves II through XII intact. 5/5 strength and sensation in all extremities, Normal speech, normal gait, normal cerebellar function SKIN: Warm, Dry, normal turgor, no rashes or lesions noted. " - Medical Decision Making 03/02/18 15:02 57 M with diarrhea and mild epigastric tenderness on exam. - Labs - GI cocktail 03/02/18 15:56 Labs wnl Pt reassessed - now feels significantly better after GI meds. Pt able to tolerate PO. Abdominal exam at this time nontender Pt is well appearing, with normal vitals. Clinically stable for DC at this time. I discussed the physical exam findings, ancillary test results and final diagnoses with the patient. I answered all of the patient's questions. The patient was satisfied with the care received and felt comfortable with the discharge plan and treatment plan. The patient agrees to follow up with the primary care physician within 24-72 hours. <Martin Zarco - Last Filed: 03/02/18 15:57> Attestations - Attestations 03/02/18 15:07 Documentation prepared by Eleazar Diaz, acting as medical underwriter for Martin Zarco MD. <Eleazar Diaz - Last Filed: 03/02/18 15:07>
[2018-03-02 15:17] LABS: ALBUMIN 3.5 g/dl (3.4-5.0); ALK PHOS 82 U/L (45-117); BILIRUBIN,TOTAL 0.4 mg/dL (0.2-1.0); BLOOD UREA NITROGEN 19 mg/dL (7-18); CO2 29 mmol/L (21-32); CREATININE 0.9 mg/dL (0.7-1.3); GLUCOSE,RANDOM 131 mg/dL (74-106); LIPASE 138 U/L (73-393); SGOT/AST 38 U/L (15-37); SGPT/ALT 74 U/L (12-78); TOT PROT 7.7 g/dl (6.4-8.2)
[2018-03-02 15:31] LABS: ANION GAP 9 (8-16); CHLORIDE 101 mmol/L (98-107); POTASSIUM 3.6 mmol/L (3.5-5.1); SODIUM 139 mmol/L (136-145)
== END 2018-03-02 19:42 | disposition home or self-care (01) ==
LOC: JER 13:48
PROC: 3E033GC Introduction of Other Therapeutic Substance into Peripheral Vein, Percutaneous Approach (ICD-10-PCS; principal; 2018-03-02)
DX: R10.13 Epigastric pain (principal); R11.2 Nausea with vomiting, unspecified; R19.7 Diarrhea, unspecified; I10 Essential (primary) hypertension; E11.9 Type 2 diabetes mellitus without complications; Z79.84 Long term (current) use of oral hypoglycemic drugs; G47.33 Obstructive sleep apnea (adult) (pediatric); F31.9 Bipolar disorder, unspecified; F14.10 Cocaine abuse, uncomplicated; F10.10 Alcohol abuse, uncomplicated; F12.10 Cannabis abuse, uncomplicated; F17.210 Nicotine dependence, cigarettes, uncomplicated
CPT/HCPCS: 36415; 80053; 83690; 85025; 96365; 99282-25

== ENCOUNTER 2024-03-15 21:36 | Inpatient (IN) | payer OTHER ==
[2024-03-15 22:13] VITALS: BMI 33.1
[2024-03-15] MEDS ORDERED: BENZONATATE 200 MG CAPSULE PO PRN (23:06)
[2024-03-15] MEDS ORDERED: POLYETHYLENE GLYCOL (HEALTHYLAX) 3350 17 GM PACKET PO PRN (23:06)
[2024-03-15] MEDS ORDERED: ACETAMINOPHEN 325 MG TABLET (FP) PO PRN (23:06)
[2024-03-15] MEDS ORDERED: NALOXONE (NARCAN) HCL 4 MG/0.1 ML SPRAY NS PRN (23:06)
[2024-03-15] MEDS ORDERED: guaiFENesin 600 MG TABLET.ER (FP) PO PRN (23:06)
[2024-03-15] MEDS ORDERED: MAG HYDROX/AL HYDROX/SIMETH 30 ML UNIT-DOSE CUP PO PRN (23:06)
[2024-03-15] MEDS ORDERED: DICYCLOMINE HCL 10 MG CAPSULE PO PRN (23:06)
[2024-03-15] MEDS ORDERED: MAGNESIUM HYDROX 2400MG/30ML ORAL SUSPENSION 30 ML CUP PO PRN (23:06)
[2024-03-15] MEDS ORDERED: NALOXONE HCL 0.4 MG/ML VIAL IM PRN (23:06)
[2024-03-15] MEDS ORDERED: NICOTINE POLACRILEX 2 MG LOZENGE BC PRN (23:06)
[2024-03-15] MEDS ORDERED: IBUPROFEN 400 MG TABLET (FP) PO PRN (23:06)
[2024-03-15] MEDS ORDERED: hydrOXYzine PAMOATE 25 MG CAPSULE (FP) PO PRN (23:06)
[2024-03-15] MEDS ORDERED: ONDANSETRON *ODT* 4 MG TABLET SL PRN (23:06)
[2024-03-15] MEDS ORDERED: BENZOCAINE/MENTHOL (CHLORASEPTIC ) LOZENGE MM PRN (23:06)
[2024-03-16] MEDS ORDERED: ALBUTEROL SO4 HFA INHALER IH PRN (06:16)
[2024-03-16] MEDS ORDERED: chlordiazePOXIDE HCL 25 MG CAPSULE PO PRN (07:50)
[2024-03-16] MEDS: chlordiazePOXIDE HCL 25 MG CAPSULE PO ONE (08:41)
[2024-03-16] MEDS: IBUPROFEN 600 MG TABLET (FP) PO PRN (08:44)
[2024-03-16] MEDS: metFORMIN HCL 500 MG TABLET (FP) PO SCH (10:22)
[2024-03-16] MEDS: ASPIRIN COATED 81 MG TABLET.EC PO SCH (10:22)
[2024-03-16] MEDS: chlordiazePOXIDE HCL 25 MG CAPSULE PO SCH (10:22)
[2024-03-16] MEDS: HYDROCHLOROTHIAZIDE 25 MG TABLET (FP) PO SCH (10:23)
[2024-03-16] MEDS: PRENATAL VITAMINS W/ FOLIC ACID TABLET (FP) PO SCH (10:23)
[2024-03-16] MEDS: NICOTINE 14 MG/24 HOURS TOPICAL PATCH TD SCH (10:24)
[2024-03-16] MEDS: amLODIPine BESYLATE 10 MG TABLET (FP) PO SCH (10:33)
[2024-03-16 11:53] LABS: CHLORIDE 110 mmol/L (98-107); SODIUM 142 mmol/L (136-145)
[2024-03-16 11:55] LABS: HEMATOCRIT 34.6 % (35.4-49); HEMOGLOBIN 11.6 GM/dL (11.7-16.9); MCH 30.3 pg (25.7-33.7); MCHC 33.7 g/dl (32.0-35.9); MEAN CELL VOLUME 90.1 fl (80-96); MEAN PLT VOLUME 7.5 fl (7.5-11.1); PLATELET COUNT 213 10^3/uL (134-434); RBC 3.84 M/mm3 (4.00-5.60); RDW 13.4 % (11.9-15.9); WHITE BLOOD COUNT 6.8 K/mm3 (4.0-10.0)
[2024-03-16 11:59] LABS: BLOOD UREA NITROGEN 28.8 mg/dL (7-18); CALCIUM 8.6 mg/dL (8.5-10.1)
[2024-03-16 12:00] LABS: ALBUMIN 3.1 g/dl (3.4-5.0); ANION GAP 4 mmol/L (4-13); CO2 28 mmol/L (21-32); GLUCOSE,RANDOM 128 mg/dL (74-106)
[2024-03-16 12:02] LABS: SGPT/ALT 113 U/L (13-61)
[2024-03-16 12:03] LABS: CREATININE 1.2 mg/dL (0.55-1.3); SGOT/AST 76 U/L (15-37)
[2024-03-16 12:04] LABS: BILIRUBIN,TOTAL 0.7 mg/dL (0.2-1); TOT PROT 6.3 g/dl (6.4-8.2)
[2024-03-16 12:05] LABS: ALK PHOS 71 U/L (45-117)
[2024-03-16] MEDS: MELATONIN 5 MG TABLETS PO SCH (22:13)
[2024-03-16] MEDS: THIAMINE 100 MG TABLET PO SCH (22:13)
[2024-03-17] MEDS: BISMUTH SUBSALICYLATE 524 MG/30 ML PO PRN (10:06)
[2024-03-17] MEDS: METHOCARBAMOL 500 MG TABLET PO PRN (22:21)
[2024-03-18] MEDS: chlordiazePOXIDE HCL 25 MG CAPSULE PO SCH (05:28)
[2024-03-18] MEDS: LOPERAMIDE HCL 2 MG CAPSULE PO PRN (05:29)
[2024-03-18] MEDS: QUEtiapine FUMARATE 100 MG TABLET (FP) PO SCH (22:03)
[2024-03-19] MEDS ORDERED: chlordiazePOXIDE HCL 10 MG CAPSULE PO PRN
[2024-03-19] MEDS: chlordiazePOXIDE HCL 10 MG CAPSULE PO SCH (05:29)
[2024-03-20] MEDS: chlordiazePOXIDE HCL 10 MG CAPSULE PO SCH (05:24)
[2024-03-21] MEDS: chlordiazePOXIDE HCL 10 MG CAPSULE PO ONE (05:34)
[2024-03-21 06:07] VITALS: TEMP 97.6
[2024-03-21 08:56] VITALS: BP 120/72; PULSE 76; RESP 14
== END 2024-03-21 09:02 | disposition home or self-care (01) | DRG 774 ==
LOC: YASAS 21:36 → Y3N 03-16 01:34
PROVIDERS: ADMIT Allergy & Immunology; ATTEND Surgery
PROC: HZ2ZZZZ Detoxification Services for Substance Abuse Treatment (ICD-10-PCS; principal; 2024-03-16)
DX: F10.230 Alcohol dependence with withdrawal, uncomplicated (principal); F14.20 Cocaine dependence, uncomplicated; F12.20 Cannabis dependence, uncomplicated; F17.210 Nicotine dependence, cigarettes, uncomplicated; F31.9 Bipolar disorder, unspecified; F19.24 Other psychoactive substance dependence with psychoactive substance-induced mood disorder; G47.33 Obstructive sleep apnea (adult) (pediatric); G47.00 Insomnia, unspecified; I10 Essential (primary) hypertension; E11.9 Type 2 diabetes mellitus without complications; Z79.84 Long term (current) use of oral hypoglycemic drugs; Z99.89 Dependence on other enabling machines and devices; Z91.148 Patient's other noncompliance with medication regimen for other reason; Z88.8 Allergy status to other drugs, medicaments and biological substances
CPT/HCPCS: 36415; 80053; 80305; 80307; 82962; 85027; 86780; 93005; 93010